=== PATIENT | female | born 1980 | race Caucasian/White ===

== ENCOUNTER 2018-08-21 13:04 | Emergency (ER) | payer SELFPAY ==
[~2018-08-21] VITALS: Ht 157.5 cm; Wt 63.5 kg
[2018-08-21 13:19] VITALS: BP 138/75; PULSE 80; RESP 18; Ht 157.5 cm; Wt 63.5 kg
--- NOTE | 2018-08-21 14:21 | ERD ---
ER Documentation Chief Complaint Chief Complaint was referred to see a rhuemotolgist by [facility], on treatment arthralgia HPI 38-year-old female presenting with erythema to bilateral ankles, knees, elbows. She states that she was seen at a hospital in [place] 2 days ago and given prednisone which has improved her symptoms. Her blood was with work was within normal limits. She is never had this before. She is seeking to see a drug abuse technician and came to the ER today to be evaluated by specialist. She denies any fevers. She states her pain has improved since taking prednisone. Denies other medical problems. NKDA. Surgical history denies. Social history denies ROS All systems reviewed and are negative except as per history of present illness. FmHx Family History: No diabetes, No coronary disease, No other Physical Exam Vitals Vital Signs Date Temp Pulse Resp B/P (MAP) Pulse Ox O2 O2 Flow FiO2 Time Delivery Rate 08/21/18 97.4 80 18 138/75 98 13:19 (96) Physical Exam GENERAL: The patient is well-appearing, well-nourished, in no acute distress CHEST: Clear to auscultation bilaterally. There are no rales, wheezes or rhonchi. HEART: Regular rate and rhythm. No murmurs, clicks, rubs or gallops. EXTREMITIES: Equal pulses bilaterally. There is no peripheral clubbing, cyanosis or edema. No focal swelling or erythema. Full range of motion. Grossly neurovascularly intact. NEUROLOGIC: Alert and oriented. Cranial nerves II through XII intact. Motor strength in all 4 extremities with 5 out of 5 strength. Sensation grossly intact. Normal speech and gait. SKIN: Erythema noted to bilateral ankles, prepatellar space, and over the olecranon bilaterally with mild swelling. No fluctuance. Procedures/MDM ER course: I offered to redraw patient's blood work given she has her previous results with her to determine if there was change in blood work. Patient states she would prefer to follow-up with her primary doctor and obtain with specialist evaluation. On evaluation patient's blood work there were no signs of elevated white count and uric acid is within normal limits. MDM: 38-year-old female presenting with pain to the joint spaces. I believe patient likely has a component of rheumatoid arthritis. I have considered septic joint versus gout but have low suspicion. Patient symptoms are improving with her current medication regimen. Patient is told to follow-up with her primary doctor to obtain rheumatology referral. I have low suspicion for infectious process and I do not feel blood work or further imaging is indicated. This was discussed at length with patient. Patient is told if symptoms change or worsen to return immediately to the ER. All questions answered at discharge Departure Diagnosis: Primary Impression: Arthritis, rheumatoid Condition: Stable Patient Instructions: Rheumatoid Arthritis Referrals: [facility] YOU HAVE RECEIVED A MEDICAL SCREENING EXAM AND THE RESULTS INDICATE THAT YOU DO NOT HAVE A CONDITION THAT REQUIRES URGENT TREATMENT IN THE EMERGENCY DEPARTMENT. FURTHER EVALUATION AND TREATMENT OF YOUR CONDITION CAN WAIT UNTIL YOU ARE SEEN IN YOUR DOCTORS OFFICE WITHIN THE NEXT 1-2 DAYS. IT IS YOUR RESPONSIBILITY TO MAKE AN APPOINTMENT FOR FOLOW-UP CARE. IF YOU HAVE A PRIMARY DOCTOR --you should call your primary doctor and schedule an appointment IF YOU DO NOT HAVE A PRIMARY DOCTOR YOU CAN CALL OUR PHYSICIAN REFERRAL HOTLINE AT IF YOU CAN NOT AFFORD TO SEE A PHYSICIAN YOU CAN CHOSE FROM THE FOLLOWING [facility] [id number] [facility] [address] [facility] [facility] [address] [facility] [address] [facility] [address] [facility]. [address] Additional Instructions: FOLLOW UP WITH YOUR PRIMARY CARE PHYSICIAN TOMORROW.Return to this facility if you are not improving as expected. MODESTO PEREZ PA-C Aug 21, 2018 14:21
== END 2018-08-21 16:00 | disposition home or self-care (01) ==
LOC: FTE 13:04
DX: M06.9 Rheumatoid arthritis, unspecified (principal)
CPT/HCPCS: 99282